=== PATIENT | female | born 1965 | race Caucasian/White ===

== ENCOUNTER 2021-11-18 17:01 | Emergency (ER) | payer BC ==
[~2021-11-18] VITALS: Ht 185.4 cm; Wt 119.0 kg
[2021-11-18 17:02] VITALS: BP 156/79
[2021-11-18] MEDS ORDERED: DONE10TA90 (17:19)
[2021-11-18] MEDS ORDERED: PREG75CA2 (17:19)
[2021-11-18] MEDS ORDERED: LOSA25TA13 (17:19)
[2021-11-18] MEDS ORDERED: DULO1CAP5 (17:19)
[2021-11-18] MEDS ORDERED: HYDR-4517 (17:19)
[2021-11-18] MEDS ORDERED: HYDR-3363 (17:19)
[2021-11-18] MEDS ORDERED: JANU50TA25 (17:19)
[2021-11-18] MEDS ORDERED: LEVO25TA5 (17:19)
[2021-11-18] MEDS ORDERED: DULO1CAP6 (17:19)
[2021-11-18] MEDS ORDERED: INSUH10VL (17:19)
[2021-11-18] MEDS ORDERED: FARX1TAB5 (17:19)
[2021-11-18] MEDS ORDERED: GLIM4TAB5 (17:19)
[2021-11-18] MEDS ORDERED: ATOR1TAB21 (17:19)
[2021-11-18] MEDS ORDERED: MELO15TA28 (17:19)
[2021-11-18] MEDS ORDERED: ATOG60TA (17:19)
[2021-11-18] MEDS ORDERED: GLIM2TAB29 (17:19)
[2021-11-18] MEDS ORDERED: BACITRACIN OINTMENT 30GM TUBE TOP ONE (22:05)
[2021-11-18] MEDS ORDERED: BOOSTRIX/ADACEL VACCINE (DIPHTH/PERTUSS/ACELL/TETANUS) 0.5ML SYR IM ONE (22:05)
[2021-11-18] MEDS ORDERED: BACTRIM 160MG/800MG DS TAB PO ONE (22:25)
[2021-11-18] MEDS ORDERED: BACT800T5 PO (22:30)
== END 2021-11-18 22:42 | disposition home or self-care (01) ==
LOC: M ED 17:01
DX: S91.121A Laceration with foreign body of right great toe without damage to nail, initial encounter (principal); W25.XXXA Contact with sharp glass, initial encounter; Y92.89 Other specified places as the place of occurrence of the external cause; L03.115 Cellulitis of right lower limb; I10 Essential (primary) hypertension; E11.9 Type 2 diabetes mellitus without complications; M79.7 Fibromyalgia; G90.50 Complex regional pain syndrome I, unspecified; E07.9 Disorder of thyroid, unspecified; R90.82 White matter disease, unspecified; Z88.5 Allergy status to narcotic agent; Z88.8 Allergy status to other drugs, medicaments and biological substances; Z91.012 Allergy to eggs; Z79.899 Other long term (current) drug therapy; Z79.84 Long term (current) use of oral hypoglycemic drugs; Z79.4 Long term (current) use of insulin; Z79.890 Hormone replacement therapy

== ENCOUNTER → 2021-12-03 | Outpatient (CLI) | payer BC ==
[~2021-12-03] MED LIST: ATOG60TA; ATOR1TAB21; BACT800T5 PO; DONE10TA90; DULO1CAP5; DULO1CAP6; FARX1TAB5; GLIM2TAB29; GLIM4TAB5; HYDR-3363; HYDR-4517; INSUH10VL; JANU50TA25; LEVO25TA5; LOSA25TA13; MELO15TA28; PREG75CA2
== END ==
LOC: M ADAMS 10:10
PROVIDERS: ATTEND Family Medicine
DX: M79.9 Soft tissue disorder, unspecified (principal)

== ENCOUNTER → 2022-01-21 | Outpatient (REF) | payer BC | LOC: M SFHCDERM 17:03 | PROVIDERS: ATTEND Nurse Practitioner Family | DX: L08.0 Pyoderma (principal) ==

== ENCOUNTER → 2022-02-02 | Outpatient (CLI) | payer BC ==
[2022-02-02 13:18] LABS: BASO # 0.1 10^3/uL (0.0-0.2); BASO % 0.6 % (0.0-1.0); EOS # 0.4 10^3/uL (0.0-0.5); EOS % 4.1 % (0.0-3.0); HEMATOCRIT 45.9 % (36.0-47.0); LYMPH # 4.2 10^3/uL (1.5-5.0); LYMPH % 48.4 % (24.0-44.0); MEAN CORPUSCULAR HEMOGLOBIN 28.6 pg (27.0-33.0); MEAN CORPUSCULAR HGB CONC 30.5 g/dl (32.0-36.5); MEAN CORPUSCULAR VOLUME 93.7 fl (80.0-96.0); MONO # 0.5 10^3/uL (0.0-0.8); MONO % 5.4 % (2.0-8.0); NEUTROPHILS # 3.6 10^3/uL (1.5-8.5); NEUTROPHILS % 41.3 % (36.0-66.0); PLATELET COUNT, AUTOMATED 236 10^3/uL (150-450); WHITE BLOOD COUNT 8.7 10^3/uL (4.0-10.0)
[2022-02-02 13:57] LABS: ALBUMIN 3.7 GM/DL (3.2-5.2); BILIRUBIN,DIRECT 0.1 MG/DL (0.0-0.2); BILIRUBIN,TOTAL 0.3 MG/DL (0.2-1.0)
== END ==
LOC: M ADAMS 09:26
PROVIDERS: ATTEND Podiatrist Foot & Ankle Surgery
DX: B35.1 Tinea unguium (principal)

== ENCOUNTER → 2022-02-02 | Outpatient (REF) | payer BC ==
[2022-02-02 14:05] LABS: ALBUMIN 3.5 GM/DL (3.2-5.2); ALT/SGPT 28 U/L (12-78); BILIRUBIN,TOTAL 0.3 MG/DL (0.2-1.0); BLOOD UREA NITROGEN 17 MG/DL (7-18); CARBON DIOXIDE LEVEL 25 MEQ/L (21-32); CHLORIDE LEVEL 105 MEQ/L (98-107); CHOLESTEROL LEVEL 142 MG/DL (<200); CREATININE FOR GFR 0.59 MG/DL (0.55-1.30); GLOMERULAR FILTRATION RATE > 60.0 (>51); GLUCOSE, FASTING 99 MG/DL (70-100); HDL CHOLESTEROL 52 MG/DL (>40); LDL CHOLESTEROL 72 MG/DL (<100); MAGNESIUM LEVEL 2.2 MG/DL (1.8-2.4); NON-HDL-C 90 MG/DL; POTASSIUM SERUM 3.8 MEQ/L (3.5-5.1); SODIUM LEVEL 137 MEQ/L (136-145); TOTAL PROTEIN 7.2 GM/DL (6.4-8.2); TRIGLYCERIDES LEVEL 88 MG/DL (<150)
[2022-02-02 16:02] LABS: HEMOGLOBIN A1c 6.7 %
== END ==
LOC: M SFHCADAM 09:18
PROVIDERS: ATTEND Family Medicine
DX: R25.2 Cramp and spasm (principal); E11.69 Type 2 diabetes mellitus with other specified complication

== ENCOUNTER → 2022-02-02 | Outpatient (CLI) | payer BC ==
[2022-02-02 14:03] LABS: THYROID STIMULATING HORMONE 3.92 uIU/ML (0.358-3.740)
[2022-02-02 14:37] LABS: TOTAL 25(OH) VITAMIN D 56.4 NG/ML (30.0-100.0)
== END ==
LOC: M ADAMS 09:29
PROVIDERS: ATTEND Psychiatry & Neurology Neurology
DX: R41.89 Other symptoms and signs involving cognitive functions and awareness (principal); E03.9 Hypothyroidism, unspecified

== ENCOUNTER → 2022-04-24 | Outpatient (REF) | payer BC | LOC: M SFHCADAM 16:05 | PROVIDERS: ATTEND Physician Assistant | DX: N30.01 Acute cystitis with hematuria (principal) ==

== ENCOUNTER → 2022-09-08 | Outpatient (CLI) | payer BC ==
[2022-09-08 13:21] LABS: BASO # 0.1 10^3/uL (0.0-0.2); BASO % 0.7 % (0.0-1.0); EOS # 0.3 10^3/uL (0.0-0.5); EOS % 2.6 % (0.0-3.0); HEMOGLOBIN 14.7 g/dl (12.0-15.5); LYMPH # 3.9 10^3/uL (1.5-5.0); LYMPH % 38.1 % (24.0-44.0); MEAN CORPUSCULAR HEMOGLOBIN 28.8 pg (27.0-33.0); MEAN CORPUSCULAR HGB CONC 31.3 g/dl (32.0-36.5); MEAN CORPUSCULAR VOLUME 92.2 fl (80.0-96.0); MONO # 0.6 10^3/uL (0.0-0.8); MONO % 5.5 % (2.0-8.0); NEUTROPHILS # 5.4 10^3/uL (1.5-8.5); NEUTROPHILS % 52.7 % (36.0-66.0); PLATELET COUNT, AUTOMATED 317 10^3/uL (150-450); WHITE BLOOD COUNT 10.2 10^3/uL (4.0-10.0)
[2022-09-08 13:36] LABS: APPEARANCE, URINE CLEAR (CLEAR); BACTERIA, URINE AUTO NEGATIVE (NEGATIVE); BILIRUBIN, URINE AUTO NEGATIVE (NEGATIVE); BLOOD, URINE BLOOD NEGATIVE (NEGATIVE); COLOR, URINE YELLOW (YELLOW); GLUCOSE, URINE (UA) AUTO 3+ mg/dL (NEGATIVE); KETONE, URINE AUTO TRACE mg/dL (NEGATIVE); LEUKOCYTE ESTERASE, URINE AUTO TRACE (NEGATIVE); NITRITE, URINE AUTO NEGATIVE (NEGATIVE); PROTEIN, URINE AUTO NEGATIVE (NEGATIVE); RBC, URINE AUTO 1 /HPF (0-3); SPECIFIC GRAVITY URINE AUTO 1.028 (1.002-1.035); SQUAMOUS EPITHELIAL CELL UR AU 1 /HPF (0-6); UROBILINOGEN, URINE AUTO 0.2 mg/dL (0.0-2.0); WBC, URINE AUTO 5 /HPF (0-3)
[2022-09-08 13:47] LABS: ALKALINE PHOSPHATASE 107 U/L (46-116); ALT/SGPT 34 U/L (7.0-40); AST/SGOT 18 U/L (<34); BILIRUBIN,TOTAL 0.5 MG/DL (0.3-1.2); BLOOD UREA NITROGEN 14 MG/DL (9-23); CALCIUM LEVEL 9.3 MG/DL (8.5-10.1); CARBON DIOXIDE LEVEL 28 MMOL/L (20-31); CHLORIDE LEVEL 103 MMOL/L (98-107); CHOLESTEROL LEVEL 169 MG/DL (<200); CHOLESTEROL RISK RATIO 3.22 (<5); CREATININE FOR GFR 0.59 MG/DL (0.55-1.30); GLOMERULAR FILTRATION RATE > 60.0 (>51); GLUCOSE, FASTING 176 MG/DL (60-100); HDL CHOLESTEROL 52.4 MG/DL (>40); LDL CHOLESTEROL 98.6 MG/DL (<100); NON-HDL-C 116.6 MG/DL; POTASSIUM SERUM 4.5 MMOL/L (3.5-5.1); SODIUM LEVEL 136 MMOL/L (136-145); TOTAL PROTEIN 7.5 G/DL (5.7-8.2); TRIGLYCERIDES LEVEL 90 MG/DL (<150)
[2022-09-08 13:49] LABS: FREE T4 0.96 NG/DL (0.89-1.76); THYROID PEROXIDASE ANTIBODY < 28.0 U/ML (<60.0); THYROID STIMULATING HORMONE 2.072 uIU/ML (0.55-4.78)
[2022-09-09 08:12] LABS: LDL DIRECT 101 mg/dL (0-99)
== END ==
LOC: M LABDRWAD 10:24
PROVIDERS: ATTEND Physician Assistant
DX: E11.65 Type 2 diabetes mellitus with hyperglycemia (principal); R79.89 Other specified abnormal findings of blood chemistry; Z79.4 Long term (current) use of insulin

== ENCOUNTER → 2022-10-06 | Outpatient (CLI) | payer BC | LOC: M ADAMS 11:50 | PROVIDERS: ATTEND Physician Assistant | DX: R07.81 Pleurodynia (principal) ==

== ENCOUNTER → 2022-10-07 | Outpatient (CLI) | payer BC | LOC: M WHC 13:12 | PROVIDERS: ATTEND Nurse Practitioner Family | DX: Z12.31 Encounter for screening mammogram for malignant neoplasm of breast (principal); Z53.8 Procedure and treatment not carried out for other reasons ==

== ENCOUNTER → 2022-10-07 | Outpatient (REF) | payer BC | LOC: M SFHCWAGY 17:59 | PROVIDERS: ATTEND Nurse Practitioner Family | DX: Z12.4 Encounter for screening for malignant neoplasm of cervix (principal) | CPT/HCPCS: 87624; G0123 ==

== ENCOUNTER → 2022-11-26 | Outpatient (CLI) | payer BC | LOC: M WHC 15:07 | PROVIDERS: ATTEND Nurse Practitioner Family | DX: Z12.31 Encounter for screening mammogram for malignant neoplasm of breast (principal) ==

== ENCOUNTER → 2022-12-28 | Outpatient (REF) | payer BC ==
[2022-12-28 16:58] LABS: BASO # 0.1 10^3/uL (0.0-0.2); BASO % 0.7 % (0.0-1.0); EOS # 0.3 10^3/uL (0.0-0.5); EOS % 3.5 % (0.0-3.0); HEMATOCRIT 47.2 % (36.0-47.0); HEMOGLOBIN 14.4 g/dl (12.0-15.5); LYMPH # 3.1 10^3/uL (1.5-5.0); LYMPH % 31.6 % (24.0-44.0); MEAN CORPUSCULAR HGB CONC 30.5 g/dl (32.0-36.5); MEAN CORPUSCULAR VOLUME 91.8 fl (80.0-96.0); MONO # 0.5 10^3/uL (0.0-0.8); MONO % 5.5 % (2.0-8.0); NEUTROPHILS # 5.7 10^3/uL (1.5-8.5); NEUTROPHILS % 58.3 % (36.0-66.0); PLATELET COUNT, AUTOMATED 342 10^3/uL (150-450); RED BLOOD COUNT 5.14 10^6/uL (4.00-5.40); WHITE BLOOD COUNT 9.8 10^3/uL (4.0-10.0)
[2022-12-28 17:12] LABS: ERYTHROCYTE SEDIMENTATION RATE 28 mm/hr (0-30)
[2022-12-28 18:25] LABS: RHEUMATOID FACTOR QUANT < 3.5 IU/ML (<14)
== END ==
LOC: M LABDRWAD 16:25
PROVIDERS: ATTEND Physician Assistant
DX: M25.551 Pain in right hip (principal); G56.03 Carpal tunnel syndrome, bilateral upper limbs; M65.341 Trigger finger, right ring finger

== ENCOUNTER → 2023-03-10 | Outpatient (CLI) | payer BC ==
[~2023-03-10] MED LIST changes: +ISOVUE-300 61% 100ML VIAL As Ordered ONE; +LIDOCAINE 1% MDV 20ML VIAL As Ordered ONE; -PREG75CA2; +PREG75CA3; +PROHANCE 279.3MG/ML 5ML VIAL As Ordered ONE
== END ==
LOC: M RAD 12:34
PROVIDERS: ATTEND Physician Assistant
DX: M16.12 Unilateral primary osteoarthritis, left hip (principal); M70.62 Trochanteric bursitis, left hip
CPT/HCPCS: 27093; 73723; 77002; A9576; Q9967

== ENCOUNTER → 2023-03-29 | Outpatient (CLI) | payer BC ==
[~2023-03-29] MED LIST changes: -ISOVUE-300 61% 100ML VIAL As Ordered ONE; -LIDOCAINE 1% MDV 20ML VIAL As Ordered ONE; -PROHANCE 279.3MG/ML 5ML VIAL As Ordered ONE
== END ==
LOC: M WHC 10:35
PROVIDERS: ATTEND Internal Medicine
DX: E07.89 Other specified disorders of thyroid (principal)

== ENCOUNTER → 2023-04-19 | Outpatient (CLI) | payer BC | LOC: M WUC 11:33 | PROVIDERS: ATTEND Physician Assistant Medical | DX: S22.42XA Multiple fractures of ribs, left side, initial encounter for closed fracture (principal); Y93.9 Activity, unspecified; Y92.9 Unspecified place or not applicable ==

== ENCOUNTER 2023-04-28 21:30 | Emergency (ER) | payer BC ==
[~2023-04-28] VITALS: Ht 185.4 cm; Wt 118.2 kg
[2023-04-28 21:31] VITALS: TEMP 98.4
[2023-04-29 01:07] VITALS: BP 133/59; O2SAT 100
== END 2023-04-29 01:21 | disposition home or self-care (01) ==
LOC: M ED 21:30
DX: S09.90XA Unspecified injury of head, initial encounter (principal); S43.402A Unspecified sprain of left shoulder joint, initial encounter; S63.92XA Sprain of unspecified part of left wrist and hand, initial encounter; S33.8XXA Sprain of other parts of lumbar spine and pelvis, initial encounter; W01.0XXA Fall on same level from slipping, tripping and stumbling without subsequent striking against object, initial encounter; Y92.009 Unspecified place in unspecified non-institutional (private) residence as the place of occurrence of the external cause; E11.9 Type 2 diabetes mellitus without complications; Z79.899 Other long term (current) drug therapy; Z88.6 Allergy status to analgesic agent; Z88.8 Allergy status to other drugs, medicaments and biological substances; Z88.5 Allergy status to narcotic agent; Z91.012 Allergy to eggs

== ENCOUNTER → 2023-07-16 | Outpatient (REF) | payer BC | LOC: M LABDRWAD 13:17 | PROVIDERS: ATTEND Physician Assistant | DX: E11.65 Type 2 diabetes mellitus with hyperglycemia (principal); Z79.4 Long term (current) use of insulin ==

== ENCOUNTER → 2023-09-08 | Outpatient (REF) | payer BC ==
[2023-09-08 17:51] LABS: APPEARANCE, URINE HAZY (CLEAR); BACTERIA, URINE AUTO NEGATIVE (NEGATIVE); BILIRUBIN, URINE AUTO NEGATIVE (NEGATIVE); BLOOD, URINE BLOOD NEGATIVE (NEGATIVE); COLOR, URINE YELLOW (YELLOW); GLUCOSE, URINE (UA) AUTO 3+ mg/dL (NEGATIVE); KETONE, URINE AUTO TRACE mg/dL (NEGATIVE); LEUKOCYTE ESTERASE, URINE AUTO TRACE (NEGATIVE); NITRITE, URINE AUTO NEGATIVE (NEGATIVE); PROTEIN, URINE AUTO NEGATIVE (NEGATIVE); RBC, URINE AUTO 1 /HPF (0-3); SPECIFIC GRAVITY URINE AUTO 1.037 (1.002-1.035); SQUAMOUS EPITHELIAL CELL UR AU 1 /HPF (0-6); UROBILINOGEN, URINE AUTO 0.2 mg/dL (0.0-2.0); WBC, URINE AUTO 2 /HPF (0-3)
== END ==
LOC: M SMT 17:00
PROVIDERS: ATTEND Specialist
DX: N39.46 Mixed incontinence (principal)

== ENCOUNTER → 2023-09-21 | Outpatient (REF) | payer BC | LOC: M SFHCDERM 17:00 | PROVIDERS: ATTEND Nurse Practitioner Family | DX: R21 Rash and other nonspecific skin eruption (principal) ==

== ENCOUNTER 2023-12-29 06:01 | Day surgery (SDC) | payer BC ==
[~2023-12-29] VITALS: Ht 185.4 cm; Wt 123.4 kg
[~2023-12-29 06:01] MED LIST changes: +ACETYL CARNITINE PO; +ALPH600C PO; +ASPI81TA26 PO; -ATOR1TAB21; +ATOR1TAB21 PO; +COQ150CH PO; +CVS1CAP2 PO; -DONE10TA90; +DONE10TA90 PO; -DULO1CAP6; +DULO1CAP6 PO; +EQL50TAB2 PO; -FARX1TAB5; +FARX1TAB5 PO; -GLIM4TAB5; +GLIM4TAB5 PO; -HYDR-4517; +HYDR-4517 PO; +JANU50TA22 PO; -LOSA25TA13; +LOSA25TA13 PO; -MELO15TA28; +MELO15TA28 PO; +MIRT1TAB15 PO; +OMEG10002 PO; +RA N1TAB PO; +RA T500C2 PO; +THERTAB52 PO; +TROS20TA3 PO; +VITA100093 PO; +[UNRECOGNIZED DRUG - CODE] PO
[2023-12-29] MEDS ORDERED: GLUCOSE 4 GM CHEW PO PRN (06:30)
[2023-12-29] MEDS ORDERED: GLUCAGON INJ 1MG VIAL SC PRN (06:30)
[2023-12-29] MEDS ORDERED: DEXTROSE 50% 50ML SYRINGE IV PRN (06:30)
[2023-12-29] MEDS: LR 1,000 ML IV SCH (07:07)
[2023-12-29] MEDS: INSULIN LISPRO (NovoLOG) PER UNIT SC PRN (07:07)
[2023-12-29] MEDS ORDERED: ONDANSETRON 4MG 2ML VIAL As Ordered ONE (07:25)
[2023-12-29] MEDS ORDERED: fentaNYL 100 MCG/2 ML INJECTION As Ordered ONE (07:25)
[2023-12-29] MEDS ORDERED: LIDOCAINE 2% 100MG/5ML SDV (FOR ANES.) As Ordered ONE (07:25)
[2023-12-29] MEDS ORDERED: dexmedeTOMIDine (4MCG/ML)200MCG/50ML BTL (PRECEDEX) As Ordered ONE (07:25)
[2023-12-29] MEDS ORDERED: KETOROLAC 60MG 2ML VIAL As Ordered ONE (07:25)
[2023-12-29] MEDS ORDERED: propofoL 200 MG/20 ML VIAL As Ordered ONE (07:25)
[2023-12-29] MEDS ORDERED: MIDAZOLAM INJ 2MG/2ML VIAL As Ordered ONE (07:26)
[2023-12-29] MEDS: ceFAZolin SOD 2 GM in IV 1 EA IV ONE (07:42)
[2023-12-29] MEDS: LIDOCAINE 1% SDV 30ML VIAL As Ordered ONE (07:43)
[2023-12-29] MEDS ORDERED: METOCLOPRAMIDE INJ 10MG/2ML VIAL As Ordered ONE (07:55)
[2023-12-29] MEDS ORDERED: ACETAMINOPHEN 1000MG 100ML IV BAG As Ordered ONE (07:55)
[2023-12-29 10:53] VITALS: BP 142/64; TEMP 97.1; O2SAT 96
== END 2023-12-29 10:57 | disposition home or self-care (01) ==
LOC: M SDC 06:01
PROVIDERS: ATTEND Podiatrist Foot & Ankle Surgery
DX: M89.8X7 Other specified disorders of bone, ankle and foot (principal); T84.213A Breakdown (mechanical) of internal fixation device of bones of foot and toes, initial encounter; T84.84XA Pain due to internal orthopedic prosthetic devices, implants and grafts, initial encounter; Y79.2 Prosthetic and other implants, materials and accessory orthopedic devices associated with adverse incidents; M20.42 Other hammer toe(s) (acquired), left foot; E10.40 Type 1 diabetes mellitus with diabetic neuropathy, unspecified; B35.1 Tinea unguium; M79.7 Fibromyalgia; Z79.4 Long term (current) use of insulin; Z79.899 Other long term (current) drug therapy; Z79.82 Long term (current) use of aspirin; Z79.84 Long term (current) use of oral hypoglycemic drugs; Z88.8 Allergy status to other drugs, medicaments and biological substances; Z88.5 Allergy status to narcotic agent

== ENCOUNTER 2024-01-14 16:07 | Emergency (ER) | payer BC ==
[~2024-01-14] VITALS: Ht 185.4 cm; Wt 122.7 kg
[2024-01-14 20:40] VITALS: BP 133/70; TEMP 98.2; O2SAT 97
== END 2024-01-14 20:42 | disposition home or self-care (01) ==
LOC: M ED 16:07
DX: T81.31XA Disruption of external operation (surgical) wound, not elsewhere classified, initial encounter (principal); E11.40 Type 2 diabetes mellitus with diabetic neuropathy, unspecified; S91.332A Puncture wound without foreign body, left foot, initial encounter; W45.0XXA Nail entering through skin, initial encounter; Y92.9 Unspecified place or not applicable; Y93.9 Activity, unspecified; Y99.9 Unspecified external cause status; Y82.9 Unspecified medical devices associated with adverse incidents

== ENCOUNTER 2024-01-21 15:11 | Inpatient (IN) | payer BC ==
[~2024-01-21] VITALS: Ht 185.4 cm; Wt 123.1 kg
[~2024-01-21 15:11] MED LIST changes: -AMOX875T2 PO; -CO Q10CA PO; -JANU50TA25 PO; -TROS60CA2 PO
[2024-01-21 16:33] LABS: BASO # 0.1 10^3/uL (0.0-0.2); BASO % 0.4 % (0.0-1.0); EOS # 0.1 10^3/uL (0.0-0.5); EOS % 0.6 % (0.0-3.0); HEMATOCRIT 43.1 % (36.0-47.0); HEMOGLOBIN 14.1 g/dl (12.0-15.5); LYMPH # 2.6 10^3/uL (1.5-5.0); LYMPH % 17.8 % (24.0-44.0); MEAN CORPUSCULAR HEMOGLOBIN 29.7 pg (27.0-33.0); MEAN CORPUSCULAR HGB CONC 32.7 g/dl (32.0-36.5); MEAN CORPUSCULAR VOLUME 90.7 fl (80.0-96.0); MONO # 1.1 10^3/uL (0.0-0.8); MONO % 7.6 % (2.0-8.0); NEUTROPHILS # 10.8 10^3/uL (1.5-8.5); NEUTROPHILS % 73.1 % (36.0-66.0); PLATELET COUNT, AUTOMATED 299 10^3/uL (150-450); RED BLOOD COUNT 4.75 10^6/uL (4.00-5.40); WHITE BLOOD COUNT 14.7 10^3/uL (4.0-10.0)
[2024-01-21 17:02] LABS: ERYTHROCYTE SEDIMENTATION RATE 68 mm/hr (0-30)
[2024-01-21] MEDS ORDERED: VANCOMYCIN HCL 2,000 MG in D5W 500 ML IV ONE (20:05)
[2024-01-21] MEDS: VANCOMYCIN HCL 1,000 MG, VIAL MATE ADAPTER 1 EACH in D5W 250 ML IV ONE ×2 (20:30→20:31)
[2024-01-21] MEDS: MORPHINE 4 MG/ML 1ML VIAL IV ONE (20:31)
[2024-01-21] MEDS ORDERED: GLUCAGON INJ 1MG VIAL SC PRN (22:50)
[2024-01-21] MEDS ORDERED: GLUCOSE 4 GM CHEW PO PRN (22:50)
[2024-01-21] MEDS ORDERED: DEXTROSE 50% 50ML SYRINGE IV PRN (22:50)
[2024-01-21] MEDS: PIPERACILLIN/TAZOBACTAM SOD 3.375 GM in D5W MINI-BAG PLUS 50 ML IV SCH (23:10)
[2024-01-21] MEDS: MORPHINE 4 MG/ML 1ML VIAL IV PRN (23:11)
[2024-01-21 23:26] LABS: BASO # 0.1 10^3/uL (0.0-0.2); BASO % 0.5 % (0.0-1.0); EOS # 0.1 10^3/uL (0.0-0.5); EOS % 1.1 % (0.0-3.0); HEMATOCRIT 40.3 % (36.0-47.0); LYMPH # 2.8 10^3/uL (1.5-5.0); LYMPH % 29.1 % (24.0-44.0); MEAN CORPUSCULAR HEMOGLOBIN 29.1 pg (27.0-33.0); MEAN CORPUSCULAR HGB CONC 32.3 g/dl (32.0-36.5); MEAN CORPUSCULAR VOLUME 90.4 fl (80.0-96.0); MONO # 0.7 10^3/uL (0.0-0.8); MONO % 7.6 % (2.0-8.0); NEUTROPHILS # 5.9 10^3/uL (1.5-8.5); NEUTROPHILS % 61.4 % (36.0-66.0); PLATELET COUNT, AUTOMATED 274 10^3/uL (150-450); RED BLOOD COUNT 4.46 10^6/uL (4.00-5.40); WHITE BLOOD COUNT 9.7 10^3/uL (4.0-10.0)
[2024-01-21] MEDS ORDERED: TROS60CA2 PO (23:37)
[2024-01-21] MEDS ORDERED: CO Q10CA PO (23:37)
[2024-01-21] MEDS ORDERED: JANU50TA25 PO (23:37)
[2024-01-21] MEDS ORDERED: HOME MED LIST COMPLETE! XX SCH (23:40)
[2024-01-21 23:44] LABS: ALBUMIN 3.5 G/DL (3.2-5.2); ALKALINE PHOSPHATASE 126 U/L (46-116); ALT/SGPT 28 U/L (7.0-40); AST/SGOT 13 U/L (<34); BILIRUBIN,TOTAL 0.6 MG/DL (0.3-1.2); BLOOD UREA NITROGEN 11 MG/DL (9-23); CALCIUM LEVEL 8.9 MG/DL (8.5-10.1); CARBON DIOXIDE LEVEL 28 MMOL/L (20-31); CHLORIDE LEVEL 100 MMOL/L (98-107); CREATININE FOR GFR 0.57 MG/DL (0.55-1.30); GLOMERULAR FILTRATION RATE > 60.0 (>51); GLUCOSE, FASTING 214 MG/DL (60-100); POTASSIUM SERUM 3.7 MMOL/L (3.5-5.1); SODIUM LEVEL 133 MMOL/L (136-145); TOTAL PROTEIN 7.4 G/DL (5.7-8.2)
[2024-01-22 01:00] VITALS: BP 139/63; TEMP 98.1; O2SAT 94
[2024-01-22 03:20] VITALS: BP 127/63; TEMP 97.9; O2SAT 94
[2024-01-22 05:42] LABS: HEMATOCRIT 38.9 % (36.0-47.0); HEMOGLOBIN 12.6 g/dl (12.0-15.5); MEAN CORPUSCULAR HEMOGLOBIN 29.8 pg (27.0-33.0); MEAN CORPUSCULAR HGB CONC 32.4 g/dl (32.0-36.5); PLATELET COUNT, AUTOMATED 269 10^3/uL (150-450); RED BLOOD COUNT 4.23 10^6/uL (4.00-5.40); WHITE BLOOD COUNT 7.3 10^3/uL (4.0-10.0)
[2024-01-22] MEDS: MIRTAZAPINE 15 MG TAB PO SCH (06:09)
[2024-01-22 06:12] LABS: BLOOD UREA NITROGEN 11 MG/DL (9-23); CALCIUM LEVEL 9.5 MG/DL (8.5-10.1); CARBON DIOXIDE LEVEL 30 MMOL/L (20-31); CHLORIDE LEVEL 104 MMOL/L (98-107); CREATININE FOR GFR 0.61 MG/DL (0.55-1.30); GLOMERULAR FILTRATION RATE > 60.0 (>51); GLUCOSE, FASTING 178 MG/DL (60-100); POTASSIUM SERUM 3.7 MMOL/L (3.5-5.1); SODIUM LEVEL 138 MMOL/L (136-145)
[2024-01-22] MEDS ORDERED: INSULIN LISPRO (NovoLOG) PER UNIT SC SCH ×2 (07:30→21:00)
[2024-01-22] MEDS: DULoxetine 30MG CAPSULE (CYMBALTA) PO SCH (08:14)
[2024-01-22] MEDS: LACTOBACILLUS ACIDOPHILUS CAP (BACID) PO SCH (08:14)
[2024-01-22] MEDS: VITAMIN D 1,000 INTERNATIONAL UNITS TABLET PO SCH (08:14)
[2024-01-22] MEDS: MULTIVITAMINS/MINERALS THERAP 1 TAB PO SCH (08:14)
[2024-01-22] MEDS: OMEGA-3 1000MG CAPSULE PO SCH (08:14)
[2024-01-22] MEDS: RIVAROXABAN 10MG TAB (XARELTO) PO SCH (08:14)
[2024-01-22] MEDS: DONEPEZIL 5 MG TAB PO SCH (08:15)
[2024-01-22] MEDS: ASPIRIN 81MG ENTERIC TABLET PO SCH (08:16)
[2024-01-22] MEDS: LOSARTAN 25 MG TAB PO SCH (08:16)
[2024-01-22] MEDS: KETOCONAZOLE 2% CREAM TOP SCH (09:00)
[2024-01-22] MEDS: MORPHINE 2 MG/ML 1ML VIAL IV PRN (11:17)
[2024-01-22 12:00] VITALS: BP 121/57; TEMP 97.9; O2SAT 94
[2024-01-22] MEDS: GABAPENTIN 100 MG CAP PO SCH (14:25)
[2024-01-22] MEDS: VANCOMYCIN HCL 1,000 MG, VIAL MATE ADAPTER 1 EACH in D5W 250 ML IV ONE ×2 (15:20→16:44)
[2024-01-22] MEDS: ALPRAZolam 0.5 MG TAB PO ONE (16:15)
[2024-01-22 20:00] VITALS: BP 126/66; TEMP 98.1; O2SAT 97
[2024-01-22] MEDS: ATORVASTATIN 20 MG TAB PO SCH (20:43)
[2024-01-22] MEDS ORDERED: TROSPIUM 60 MG PO SCH (21:00)
[2024-01-22] MEDS: UNRESOLVED PATIENT OWN MED ORDER XX SCH (23:29)
[2024-01-22] MEDS: VANCOMYCIN HCL 1,000 MG, VIAL MATE ADAPTER 1 EACH in D5W 250 ML IV SCH (23:46)
[2024-01-23 04:00] VITALS: BP 132/68; TEMP 97.5; O2SAT 95
[2024-01-23] MEDS: ALPRAZolam 0.25 MG TAB PO ONE (04:14)
[2024-01-23 06:10] LABS: BASO % 0.6 % (0.0-1.0); EOS # 0.3 10^3/uL (0.0-0.5); EOS % 4.9 % (0.0-3.0); HEMATOCRIT 38.7 % (36.0-47.0); LYMPH # 2.3 10^3/uL (1.5-5.0); LYMPH % 36.8 % (24.0-44.0); MEAN CORPUSCULAR HEMOGLOBIN 29.1 pg (27.0-33.0); MEAN CORPUSCULAR VOLUME 93.7 fl (80.0-96.0); MONO # 0.6 10^3/uL (0.0-0.8); MONO % 9.6 % (2.0-8.0); NEUTROPHILS % 47.8 % (36.0-66.0); PLATELET COUNT, AUTOMATED 259 10^3/uL (150-450); RED BLOOD COUNT 4.13 10^6/uL (4.00-5.40); WHITE BLOOD COUNT 6.3 10^3/uL (4.0-10.0)
[2024-01-23 06:33] LABS: BLOOD UREA NITROGEN 12 MG/DL (9-23); CARBON DIOXIDE LEVEL 26 MMOL/L (20-31); CHLORIDE LEVEL 106 MMOL/L (98-107); CREATININE FOR GFR 0.49 MG/DL (0.55-1.30); GLOMERULAR FILTRATION RATE > 60.0 (>51); GLUCOSE, FASTING 240 MG/DL (60-100); POTASSIUM SERUM 4.1 MMOL/L (3.5-5.1); SODIUM LEVEL 139 MMOL/L (136-145)
[2024-01-23 12:00] VITALS: BP 140/71; TEMP 97.3; O2SAT 96
[2024-01-23 19:40] VITALS: BP 141/70; TEMP 97.7; O2SAT 99
[2024-01-24 04:00] VITALS: BP 124/64; TEMP 97.5; O2SAT 98
[2024-01-24] MEDS: ALPRAZolam 0.5 MG TAB PO PRN (04:38)
[2024-01-24] MEDS: VANCOMYCIN HCL 1,000 MG, VIAL MATE ADAPTER 1 EACH in D5W 250 ML IV SCH (08:44)
[2024-01-24] MEDS: INSULIN LISPRO (NovoLOG) PER UNIT SC SCH (08:45)
[2024-01-24] MEDS ORDERED: KETOROLAC 60MG 2ML VIAL As Ordered ONE (11:11)
[2024-01-24] MEDS ORDERED: ONDANSETRON 4MG 2ML VIAL As Ordered ONE (11:11)
[2024-01-24] MEDS ORDERED: ACETAMINOPHEN 1000MG 100ML IV BAG As Ordered ONE (11:11)
[2024-01-24] MEDS ORDERED: propofoL 200 MG/20 ML VIAL As Ordered ONE (11:11)
[2024-01-24] MEDS ORDERED: LIDOCAINE 2% 100MG/5ML SDV (FOR ANES.) As Ordered ONE (11:11)
[2024-01-24] MEDS ORDERED: fentaNYL 100 MCG/2 ML INJECTION As Ordered ONE (11:12)
[2024-01-24] MEDS ORDERED: MIDAZOLAM INJ 2MG/2ML VIAL As Ordered ONE (11:12)
[2024-01-24] MEDS ORDERED: oxyCODONE 5MG TAB PO PRN (11:20)
[2024-01-24] MEDS ORDERED: ONDANSETRON 4MG 2ML VIAL IV PRN (11:20)
[2024-01-24] MEDS ORDERED: HYDROMORPHONE HCL 0.5 MG/ 0.5 ML SYRINGE IV PRN (11:20)
[2024-01-24] MEDS: LIDOCAINE 1% SDV 30ML VIAL As Ordered ONE (11:41)
[2024-01-24] MEDS: LR 1,000 ML IV SCH (11:55)
[2024-01-24] MEDS ORDERED: fentaNYL 100 MCG/2 ML INJECTION IV PRN (11:55)
[2024-01-24 20:18] VITALS: BP 130/59; TEMP 97.5; O2SAT 100
[2024-01-24] MEDS: UNRESOLVED PATIENT OWN MED ORDER XX SCH (21:00)
[2024-01-25 04:11] VITALS: BP 118/57; TEMP 97.5; O2SAT 100
[2024-01-25 07:53] LABS: BASO # 0.1 10^3/uL (0.0-0.2); BASO % 0.7 % (0.0-1.0); EOS # 0.1 10^3/uL (0.0-0.5); EOS % 1.2 % (0.0-3.0); HEMATOCRIT 37.5 % (36.0-47.0); HEMOGLOBIN 11.9 g/dl (12.0-15.5); LYMPH # 3.1 10^3/uL (1.5-5.0); LYMPH % 36.4 % (24.0-44.0); MEAN CORPUSCULAR HGB CONC 31.7 g/dl (32.0-36.5); MEAN CORPUSCULAR VOLUME 91.2 fl (80.0-96.0); MONO # 0.5 10^3/uL (0.0-0.8); MONO % 6.2 % (2.0-8.0); NEUTROPHILS # 4.7 10^3/uL (1.5-8.5); NEUTROPHILS % 55.1 % (36.0-66.0); PLATELET COUNT, AUTOMATED 291 10^3/uL (150-450); RED BLOOD COUNT 4.11 10^6/uL (4.00-5.40); WHITE BLOOD COUNT 8.5 10^3/uL (4.0-10.0)
[2024-01-25 08:21] LABS: BLOOD UREA NITROGEN 13 MG/DL (9-23); CALCIUM LEVEL 9.1 MG/DL (8.5-10.1); CARBON DIOXIDE LEVEL 30 MMOL/L (20-31); CHLORIDE LEVEL 106 MMOL/L (98-107); CREATININE FOR GFR 0.53 MG/DL (0.55-1.30); GLOMERULAR FILTRATION RATE > 60.0 (>51); GLUCOSE, FASTING 244 MG/DL (60-100); SODIUM LEVEL 141 MMOL/L (136-145)
[2024-01-25 08:34] VITALS: BP 131/66
[2024-01-25 12:00] VITALS: BP 116/54; TEMP 97.2; O2SAT 96
[2024-01-25] MEDS ORDERED: CVS1CAP2 PO (12:30)
[2024-01-25] MEDS ORDERED: AMOX875T2 PO (12:30)
[2024-01-25] MEDS: AUGMENTIN 875 MG TAB PO SCH (13:20)
== END 2024-01-25 17:48 | disposition home or self-care (01) | DRG 344 ==
LOC: M ED 15:11 → M ED INP 22:29 → M MSPAV 01-22 00:53
PROVIDERS: ADMIT Student in an Organized Health Care Education/Training Program; ATTEND Internal Medicine
PROC: 0H9NXZZ Drainage of Left Foot Skin, External Approach (ICD-10-PCS; principal; 2024-01-24 11:00)
DX: E11.69 Type 2 diabetes mellitus with other specified complication (principal); T81.31XA Disruption of external operation (surgical) wound, not elsewhere classified, initial encounter; E11.621 Type 2 diabetes mellitus with foot ulcer; M86.172 Other acute osteomyelitis, left ankle and foot; E11.42 Type 2 diabetes mellitus with diabetic polyneuropathy; L03.116 Cellulitis of left lower limb; R90.82 White matter disease, unspecified; M79.7 Fibromyalgia; E56.9 Vitamin deficiency, unspecified; E03.9 Hypothyroidism, unspecified; G43.909 Migraine, unspecified, not intractable, without status migrainosus; E78.5 Hyperlipidemia, unspecified; G89.29 Other chronic pain; I10 Essential (primary) hypertension; E55.9 Vitamin D deficiency, unspecified; E66.9 Obesity, unspecified; Y83.8 Other surgical procedures as the cause of abnormal reaction of the patient, or of later complication, without mention of misadventure at the time of the procedure; L97.529 Non-pressure chronic ulcer of other part of left foot with unspecified severity; Z79.82 Long term (current) use of aspirin; Z79.1 Long term (current) use of non-steroidal anti-inflammatories (NSAID); Z79.4 Long term (current) use of insulin; Z79.899 Other long term (current) drug therapy; Z88.5 Allergy status to narcotic agent; Z88.8 Allergy status to other drugs, medicaments and biological substances; Z91.012 Allergy to eggs; Z68.35 Body mass index [BMI] 35.0-35.9, adult

== ENCOUNTER → 2024-01-21 | Outpatient (REF) | payer BC ==
[~2024-01-21] MED LIST changes: +AMOX875T2 PO; +CO Q10CA PO; +JANU50TA25 PO; +TROS60CA2 PO
== END ==
LOC: M LAB REF 16:32
PROVIDERS: ATTEND Podiatrist Foot & Ankle Surgery
DX: L03.116 Cellulitis of left lower limb (principal)

== ENCOUNTER 2024-02-09 11:23 | Inpatient (IN) | payer BC ==
[~2024-02-09] VITALS: Ht 185.4 cm; Wt 122.4 kg
[~2024-02-09 11:23] MED LIST changes: +AMOX875T2 PO; +CO Q10CA PO; -INSUH10VL; +INSUH10VL SQ; +JANU50TA25 PO; +TROS60CA2 PO
[2024-02-09] MEDS ORDERED: HYDR-3713 PO (11:52)
[2024-02-09] MEDS ORDERED: SEMA14TA2 PO (11:52)
[2024-02-09] MEDS ORDERED: PREG75CA3 PO (11:52)
[2024-02-09] MEDS ORDERED: BACTDSTA PO (11:52)
[2024-02-09 12:51] LABS: BASO # 0.1 10^3/uL (0.0-0.2); BASO % 0.6 % (0.0-1.0); EOS # 0.2 10^3/uL (0.0-0.5); EOS % 2.8 % (0.0-3.0); HEMATOCRIT 44.2 % (36.0-47.0); HEMOGLOBIN 13.9 g/dl (12.0-15.5); LYMPH # 2.8 10^3/uL (1.5-5.0); MEAN CORPUSCULAR HEMOGLOBIN 28.5 pg (27.0-33.0); MEAN CORPUSCULAR HGB CONC 31.4 g/dl (32.0-36.5); MEAN CORPUSCULAR VOLUME 90.6 fl (80.0-96.0); MONO # 0.5 10^3/uL (0.0-0.8); MONO % 6.3 % (2.0-8.0); NEUTROPHILS # 4.5 10^3/uL (1.5-8.5); NEUTROPHILS % 55.9 % (36.0-66.0); PLATELET COUNT, AUTOMATED 392 10^3/uL (150-450); RED BLOOD COUNT 4.88 10^6/uL (4.00-5.40); WHITE BLOOD COUNT 8.1 10^3/uL (4.0-10.0)
[2024-02-09 13:01] LABS: ERYTHROCYTE SEDIMENTATION RATE 72 mm/hr (0-30)
[2024-02-09 13:02] LABS: INR 0.99; PARTIAL THROMBOPLASTIN TIME 26.6 SECONDS (24.8-34.2); PROTHROMBIN TIME 12.8 SECONDS (12.5-14.5)
[2024-02-09 13:12] LABS: BLOOD UREA NITROGEN 11 MG/DL (9-23); CALCIUM LEVEL 9.6 MG/DL (8.5-10.1); CARBON DIOXIDE LEVEL 27 MMOL/L (20-31); CHLORIDE LEVEL 107 MMOL/L (98-107); GLOMERULAR FILTRATION RATE > 60.0 (>51); GLUCOSE, FASTING 284 MG/DL (60-100); POTASSIUM SERUM 4.5 MMOL/L (3.5-5.1); SODIUM LEVEL 140 MMOL/L (136-145)
[2024-02-09] MEDS ORDERED: VANCOMYCIN HCL 2,000 MG in IV FLUID PLACE HOLDER 1 EA IV ONE (15:15)
[2024-02-09] MEDS: PIPERACILLIN/TAZOBACTAM SOD 3.375 GM in D5W MINI-BAG PLUS 50 ML IV ONE (15:41)
[2024-02-09] MEDS: NS 1,000 ML IV ONE (15:41)
[2024-02-09] MEDS: fentaNYL 100 MCG/2 ML INJECTION IV ONE (15:43)
[2024-02-09] MEDS: VANCOMYCIN 2,000 MG/400 ML IV BAG *LOAD IV ONE (19:38)
[2024-02-09] MEDS ORDERED: CVS1CAP2 PO (20:19)
[2024-02-09] MEDS ORDERED: HOME MED LIST COMPLETE! XX SCH (20:30)
[2024-02-09] MEDS ORDERED: MOM 30ML SUSPENSION UDC PO PRN (21:45)
[2024-02-09] MEDS ORDERED: FLUID PLACE HOLDER IV SCH (21:45)
[2024-02-09] MEDS ORDERED: MAALOX 30 ML SUSP *UDC PO PRN (21:45)
[2024-02-09] MEDS ORDERED: VANCOMYCIN HCL IV SCH (21:45)
[2024-02-09] MEDS ORDERED: GLUCOSE 4 GM CHEW PO PRN (22:05)
[2024-02-09] MEDS ORDERED: DEXTROSE 50% 50ML SYRINGE IV PRN (22:05)
[2024-02-09] MEDS ORDERED: GLUCAGON INJ 1MG VIAL SC PRN (22:05)
[2024-02-09] MEDS: PIPERACILLIN/TAZOBACTAM SOD 4.5 GM in D5W MINI-BAG PLUS 50 ML IV SCH (22:17)
[2024-02-09] MEDS: INSULIN LISPRO (NovoLOG) PER UNIT SC SCH (22:40)
[2024-02-09] MEDS: ASPIRIN 81MG ENTERIC TABLET PO SCH (22:43)
[2024-02-09] MEDS: MIRTAZAPINE 15 MG TAB PO SCH (22:43)
[2024-02-09] MEDS: ATORVASTATIN 20 MG TAB PO SCH (22:43)
[2024-02-09] MEDS: NORCO, ANEXSIA 5/325MG TABLET (HYDROcodone/ACETAMINOPHEN) PO PRN (23:12)
[2024-02-09] MEDS: MELOXICAM (MOBIC) 7.5 MG TAB PO SCH (23:12)
[2024-02-09] MEDS: LR 1,000 ML IV SCH (23:47)
[2024-02-10] VITALS (7 sets, daily range): BP systolic 110–149; BP diastolic 57–69; TEMP 97.1–98; O2SAT 94–96
[2024-02-10] MEDS: VANCOMYCIN IV SCH (05:39)
[2024-02-10 06:04] LABS: HEMATOCRIT 36.8 % (36.0-47.0); MEAN CORPUSCULAR HEMOGLOBIN 29.4 pg (27.0-33.0); MEAN CORPUSCULAR HGB CONC 31.5 g/dl (32.0-36.5); MEAN CORPUSCULAR VOLUME 93.4 fl (80.0-96.0); PLATELET COUNT, AUTOMATED 330 10^3/uL (150-450); RED BLOOD COUNT 3.94 10^6/uL (4.00-5.40); WHITE BLOOD COUNT 7.7 10^3/uL (4.0-10.0)
[2024-02-10 06:05] LABS: HEMOGLOBIN 11.6 g/dl (12.0-15.5)
[2024-02-10 06:11] LABS: ERYTHROCYTE SEDIMENTATION RATE 24 mm/hr (0-30)
[2024-02-10 06:21] LABS: ALBUMIN 2.8 G/DL (3.2-5.2); ALKALINE PHOSPHATASE 136 U/L (46-116); ALT/SGPT 28 U/L (7.0-40); AST/SGOT 12 U/L (<34); BILIRUBIN,TOTAL 0.3 MG/DL (0.3-1.2); BLOOD UREA NITROGEN 10 MG/DL (9-23); CALCIUM LEVEL 8.4 MG/DL (8.5-10.1); CARBON DIOXIDE LEVEL 26 MMOL/L (20-31); CHLORIDE LEVEL 110 MMOL/L (98-107); CREATININE FOR GFR 0.52 MG/DL (0.55-1.30); GLOMERULAR FILTRATION RATE > 60.0 (>51); GLUCOSE, FASTING 228 MG/DL (60-100); MAGNESIUM LEVEL 1.9 MG/DL (1.8-2.4); SODIUM LEVEL 140 MMOL/L (136-145); TOTAL PROTEIN 5.9 G/DL (5.7-8.2)
[2024-02-10] MEDS: INSULIN LISPRO (NovoLOG) PER UNIT SC SCH (07:30)
[2024-02-10] MEDS: LACTOBACILLUS ACIDOPHILUS CAP (BACID) PO SCH (07:33)
[2024-02-10] MEDS: DOCUSATE SODIUM 100MG CAPSULE PO SCH (08:51)
[2024-02-10] MEDS: DULoxetine 30MG CAPSULE (CYMBALTA) PO SCH (08:51)
[2024-02-10] MEDS: DONEPEZIL 5 MG TAB PO SCH (08:51)
[2024-02-10] MEDS: OMEGA-3 1000MG CAPSULE PO SCH (08:52)
[2024-02-10] MEDS: PREGABALIN 75 MG CAP(LYRICA) PO SCH (08:52)
[2024-02-10] MEDS: VITAMIN D 1,000 INTERNATIONAL UNITS TABLET PO SCH (08:52)
[2024-02-10] MEDS: LOSARTAN 25 MG TAB PO SCH (09:00)
[2024-02-10] MEDS: LIDOCAINE 1% MDV 20ML VIAL As Ordered ONE (12:16)
[2024-02-10] MEDS ORDERED: propofoL 200 MG/20 ML VIAL As Ordered ONE (12:25)
[2024-02-10] MEDS ORDERED: fentaNYL 100 MCG/2 ML INJECTION As Ordered ONE (12:25)
[2024-02-10] MEDS ORDERED: LIDOCAINE 2% 100MG/5ML SDV (FOR ANES.) As Ordered ONE (12:25)
[2024-02-10] MEDS ORDERED: MIDAZOLAM INJ 2MG/2ML VIAL As Ordered ONE (12:25)
[2024-02-10] MEDS ORDERED: ACETAMINOPHEN 1000MG 100ML IV BAG As Ordered ONE (12:28)
[2024-02-10] MEDS: VANCOMYCIN 1000MG/20ML VIAL As Ordered ONE (12:35)
[2024-02-10] MEDS ORDERED: fentaNYL 100 MCG/2 ML INJECTION IV PRN (12:55)
[2024-02-10] MEDS ORDERED: HYDROMORPHONE HCL 0.5 MG/ 0.5 ML SYRINGE IV PRN (12:55)
[2024-02-10] MEDS ORDERED: ONDANSETRON 4MG 2ML VIAL IV PRN (12:55)
[2024-02-10] MEDS: MAGNESIUM OXIDE 400MG TAB (MAG-OX) PO SCH (16:21)
[2024-02-10] MEDS: MORPHINE 2 MG/ML 1ML VIAL IV PRN (19:28)
[2024-02-10] MEDS ORDERED: TROSPIUM 60 MG PO SCH (21:00)
[2024-02-10] MEDS: NORCO, ANEXSIA 5/325MG TABLET (HYDROcodone/ACETAMINOPHEN) PO PRN (23:41)
[2024-02-11] VITALS: BP 114/57; TEMP 98.3; O2SAT 96
[2024-02-11] MEDS ORDERED: NALOXONE INJ 0.4MG/1ML VIAL IV PRN (01:30)
[2024-02-11] MEDS: METHOCARBAMOL 1,000 MG/10 ML VIAL IV ONE (01:57)
[2024-02-11] MEDS: HYDROmorphone HCL 2MG/ML 1ML VIAL IV PRN (02:12)
[2024-02-11 04:00] VITALS: BP 116/58; TEMP 98.3; O2SAT 98
[2024-02-11 08:00] VITALS: BP 122/60; TEMP 97.2; O2SAT 97
[2024-02-11] MEDS: HYDROMORPHONE HCL 0.5 MG/ 0.5 ML SYRINGE IV PRN (10:08)
[2024-02-11] MEDS: UNRESOLVED PATIENT OWN MED ORDER XX SCH (10:16)
[2024-02-11 12:00] VITALS: BP 116/56; TEMP 97.7; O2SAT 98
[2024-02-11 16:00] VITALS: BP 116/56; TEMP 98.1; O2SAT 98
[2024-02-11 20:00] VITALS: BP 130/58; TEMP 97.8; O2SAT 97
[2024-02-12 04:00] VITALS: BP 140/66; TEMP 98; O2SAT 98
[2024-02-12 11:35] VITALS: BP 130/66; TEMP 97.7; O2SAT 94
[2024-02-12] MEDS: methocarbamoL 500 MG TAB PO PRN (16:02)
[2024-02-12 19:37] VITALS: BP 126/63; TEMP 98.2; O2SAT 96
[2024-02-13 04:00] VITALS: BP 127/64; TEMP 97.9; O2SAT 98
[2024-02-13 04:33] LABS: BASO % 0.4 % (0.0-1.0); EOS # 0.3 10^3/uL (0.0-0.5); EOS % 3.9 % (0.0-3.0); HEMATOCRIT 36.4 % (36.0-47.0); HEMOGLOBIN 11.5 g/dl (12.0-15.5); LYMPH # 2.4 10^3/uL (1.5-5.0); LYMPH % 32.1 % (24.0-44.0); MEAN CORPUSCULAR HEMOGLOBIN 29.2 pg (27.0-33.0); MEAN CORPUSCULAR HGB CONC 31.6 g/dl (32.0-36.5); MEAN CORPUSCULAR VOLUME 92.4 fl (80.0-96.0); MONO # 0.5 10^3/uL (0.0-0.8); MONO % 6.9 % (2.0-8.0); NEUTROPHILS # 4.1 10^3/uL (1.5-8.5); NEUTROPHILS % 56.3 % (36.0-66.0); PLATELET COUNT, AUTOMATED 291 10^3/uL (150-450); RED BLOOD COUNT 3.94 10^6/uL (4.00-5.40); WHITE BLOOD COUNT 7.4 10^3/uL (4.0-10.0)
[2024-02-13 04:57] LABS: BLOOD UREA NITROGEN 13 MG/DL (9-23); CALCIUM LEVEL 8.7 MG/DL (8.5-10.1); CARBON DIOXIDE LEVEL 31 MMOL/L (20-31); CHLORIDE LEVEL 105 MMOL/L (98-107); CREATININE FOR GFR 0.56 MG/DL (0.55-1.30); GLOMERULAR FILTRATION RATE > 60.0 (>51); GLUCOSE, FASTING 196 MG/DL (60-100); SODIUM LEVEL 139 MMOL/L (136-145)
[2024-02-13 12:00] VITALS: BP 150/65; TEMP 98.2; O2SAT 93
[2024-02-13 20:19] VITALS: BP 141/68; TEMP 98.1; O2SAT 96
[2024-02-14 04:58] VITALS: BP 142/67; TEMP 97.2; O2SAT 91
[2024-02-14 06:20] LABS: BASO # 0.1 10^3/uL (0.0-0.2); BASO % 0.7 % (0.0-1.0); EOS # 0.3 10^3/uL (0.0-0.5); EOS % 4.1 % (0.0-3.0); HEMATOCRIT 39.4 % (36.0-47.0); HEMOGLOBIN 12.5 g/dl (12.0-15.5); LYMPH # 2.7 10^3/uL (1.5-5.0); LYMPH % 35.9 % (24.0-44.0); MEAN CORPUSCULAR HEMOGLOBIN 28.7 pg (27.0-33.0); MEAN CORPUSCULAR HGB CONC 31.7 g/dl (32.0-36.5); MEAN CORPUSCULAR VOLUME 90.4 fl (80.0-96.0); MONO # 0.5 10^3/uL (0.0-0.8); MONO % 7.1 % (2.0-8.0); NEUTROPHILS # 3.9 10^3/uL (1.5-8.5); NEUTROPHILS % 51.9 % (36.0-66.0); PLATELET COUNT, AUTOMATED 334 10^3/uL (150-450); RED BLOOD COUNT 4.36 10^6/uL (4.00-5.40); WHITE BLOOD COUNT 7.5 10^3/uL (4.0-10.0)
[2024-02-14 06:49] LABS: BLOOD UREA NITROGEN 12 MG/DL (9-23); CALCIUM LEVEL 8.9 MG/DL (8.5-10.1); CARBON DIOXIDE LEVEL 31 MMOL/L (20-31); CHLORIDE LEVEL 104 MMOL/L (98-107); CREATININE FOR GFR 0.52 MG/DL (0.55-1.30); GLOMERULAR FILTRATION RATE > 60.0 (>51); GLUCOSE, FASTING 143 MG/DL (60-100); POTASSIUM SERUM 4.2 MMOL/L (3.5-5.1); SODIUM LEVEL 139 MMOL/L (136-145)
[2024-02-14 11:11] LABS: HEMOGLOBIN A1c 7.9 % (4.0-6.0)
[2024-02-14 12:00] VITALS: BP 142/68; TEMP 98.2; O2SAT 94
[2024-02-14 20:38] VITALS: BP 140/66; TEMP 97.2; O2SAT 95
[2024-02-15 04:00] VITALS: BP 141/68; TEMP 98.1; O2SAT 95
[2024-02-15 06:26] LABS: BASO % 0.4 % (0.0-1.0); EOS # 0.3 10^3/uL (0.0-0.5); EOS % 4.5 % (0.0-3.0); HEMOGLOBIN 12.1 g/dl (12.0-15.5); LYMPH # 2.3 10^3/uL (1.5-5.0); LYMPH % 30.1 % (24.0-44.0); MEAN CORPUSCULAR HEMOGLOBIN 28.9 pg (27.0-33.0); MEAN CORPUSCULAR HGB CONC 31.8 g/dl (32.0-36.5); MEAN CORPUSCULAR VOLUME 90.9 fl (80.0-96.0); MONO # 0.5 10^3/uL (0.0-0.8); MONO % 6.1 % (2.0-8.0); NEUTROPHILS # 4.4 10^3/uL (1.5-8.5); NEUTROPHILS % 58.5 % (36.0-66.0); PLATELET COUNT, AUTOMATED 327 10^3/uL (150-450); RED BLOOD COUNT 4.18 10^6/uL (4.00-5.40); WHITE BLOOD COUNT 7.5 10^3/uL (4.0-10.0)
[2024-02-15 06:52] LABS: BLOOD UREA NITROGEN 12 MG/DL (9-23); CALCIUM LEVEL 8.9 MG/DL (8.5-10.1); CARBON DIOXIDE LEVEL 29 MMOL/L (20-31); CHLORIDE LEVEL 105 MMOL/L (98-107); CREATININE FOR GFR 0.51 MG/DL (0.55-1.30); GLOMERULAR FILTRATION RATE > 60.0 (>51); GLUCOSE, FASTING 148 MG/DL (60-100); SODIUM LEVEL 139 MMOL/L (136-145)
[2024-02-15] MEDS: ACETAMINOPHEN TAB 650MG DOSE (2X325MG) PO PRN (10:46)
[2024-02-15 12:00] VITALS: BP 119/65; TEMP 97.2; O2SAT 97
[2024-02-15 20:00] VITALS: BP 143/65; TEMP 97.3
[2024-02-16 04:00] VITALS: BP 145/65; TEMP 97.9; O2SAT 96
[2024-02-16 06:58] LABS: BASO % 0.7 % (0.0-1.0); EOS # 0.4 10^3/uL (0.0-0.5); EOS % 6.1 % (0.0-3.0); HEMATOCRIT 40.6 % (36.0-47.0); HEMOGLOBIN 12.7 g/dl (12.0-15.5); LYMPH # 2.3 10^3/uL (1.5-5.0); LYMPH % 38.5 % (24.0-44.0); MEAN CORPUSCULAR HEMOGLOBIN 28.3 pg (27.0-33.0); MEAN CORPUSCULAR HGB CONC 31.3 g/dl (32.0-36.5); MEAN CORPUSCULAR VOLUME 90.6 fl (80.0-96.0); MONO # 0.5 10^3/uL (0.0-0.8); MONO % 8.1 % (2.0-8.0); NEUTROPHILS # 2.8 10^3/uL (1.5-8.5); NEUTROPHILS % 46.1 % (36.0-66.0); PLATELET COUNT, AUTOMATED 304 10^3/uL (150-450); RED BLOOD COUNT 4.48 10^6/uL (4.00-5.40); WHITE BLOOD COUNT 6.1 10^3/uL (4.0-10.0)
[2024-02-16 07:30] LABS: BLOOD UREA NITROGEN 9 MG/DL (9-23); CALCIUM LEVEL 8.9 MG/DL (8.5-10.1); CARBON DIOXIDE LEVEL 29 MMOL/L (20-31); CHLORIDE LEVEL 107 MMOL/L (98-107); CREATININE FOR GFR 0.55 MG/DL (0.55-1.30); GLOMERULAR FILTRATION RATE > 60.0 (>51); GLUCOSE, FASTING 126 MG/DL (60-100); POTASSIUM SERUM 3.9 MMOL/L (3.5-5.1); SODIUM LEVEL 138 MMOL/L (136-145)
[2024-02-16 12:00] VITALS: BP 126/63; TEMP 97.6; O2SAT 96
[2024-02-16 20:20] VITALS: BP 145/61; TEMP 97; O2SAT 94
[2024-02-17 04:09] VITALS: BP 146/70; TEMP 97.9; O2SAT 94
[2024-02-17 06:17] LABS: BASO % 0.6 % (0.0-1.0); EOS # 0.4 10^3/uL (0.0-0.5); EOS % 5.9 % (0.0-3.0); HEMOGLOBIN 12.5 g/dl (12.0-15.5); LYMPH # 2.7 10^3/uL (1.5-5.0); LYMPH % 41.1 % (24.0-44.0); MEAN CORPUSCULAR HEMOGLOBIN 29.1 pg (27.0-33.0); MEAN CORPUSCULAR HGB CONC 31.3 g/dl (32.0-36.5); MONO # 0.5 10^3/uL (0.0-0.8); MONO % 7.6 % (2.0-8.0); NEUTROPHILS # 2.9 10^3/uL (1.5-8.5); NEUTROPHILS % 44.3 % (36.0-66.0); PLATELET COUNT, AUTOMATED 290 10^3/uL (150-450); WHITE BLOOD COUNT 6.6 10^3/uL (4.0-10.0)
[2024-02-17 06:44] LABS: BLOOD UREA NITROGEN 12 MG/DL (9-23); CARBON DIOXIDE LEVEL 27 MMOL/L (20-31); CHLORIDE LEVEL 106 MMOL/L (98-107); CREATININE FOR GFR 0.54 MG/DL (0.55-1.30); GLOMERULAR FILTRATION RATE > 60.0 (>51); GLUCOSE, FASTING 127 MG/DL (60-100); POTASSIUM SERUM 3.8 MMOL/L (3.5-5.1); SODIUM LEVEL 139 MMOL/L (136-145)
[2024-02-17 08:30] VITALS: BP 146/69
[2024-02-17] MEDS ORDERED: CEFD300CAP PO (10:23)
[2024-02-17] MEDS ORDERED: DOXY100C3 PO (10:23)
[2024-02-17 11:32] VITALS: BP 106/55; TEMP 97.9; O2SAT 97
[2024-02-17] MEDS: CEFDINIR 300 MG CAP (OMNICEF) PO SCH (13:48)
[2024-02-17] MEDS: DOXYCYCLINE HYCLATE 100MG TABLET PO SCH (13:48)
== END 2024-02-17 16:35 | disposition home or self-care (01) | DRG 344 ==
LOC: M ED 11:23 → M ED INP 21:44 → M MS4PR 02-10 15:10 → M MS5PR 02-12 11:35
PROVIDERS: ADMIT Internal Medicine; ATTEND Internal Medicine
PROC: 0QBP0ZX Excision of Left Metatarsal, Open Approach, Diagnostic (ICD-10-PCS; principal; 2024-02-10 13:00)
PROC: 3E0V329 Introduction of Other Anti-infective into Bones, Percutaneous Approach (ICD-10-PCS; 2024-02-10 13:00)
DX: E11.69 Type 2 diabetes mellitus with other specified complication (principal); E11.42 Type 2 diabetes mellitus with diabetic polyneuropathy; M86.172 Other acute osteomyelitis, left ankle and foot; M79.7 Fibromyalgia; E03.9 Hypothyroidism, unspecified; G43.909 Migraine, unspecified, not intractable, without status migrainosus; L02.612 Cutaneous abscess of left foot; G89.29 Other chronic pain; M45.9 Ankylosing spondylitis of unspecified sites in spine; Z79.82 Long term (current) use of aspirin; Z79.4 Long term (current) use of insulin; Z79.899 Other long term (current) drug therapy; Z88.5 Allergy status to narcotic agent; Z88.8 Allergy status to other drugs, medicaments and biological substances; Z91.012 Allergy to eggs

== ENCOUNTER → 2024-06-23 | Outpatient (REF) | payer BC ==
[~2024-06-23] MED LIST changes: +BACTDSTA PO; +CEFD300CAP PO; +DOXY100C3 PO; +HYDR-3713 PO; +PREG75CA3 PO; +SEMA14TA2 PO
[2024-06-23 14:27] LABS: BASO # 0.1 10^3/uL (0.0-0.2); BASO % 0.7 % (0.0-1.0); EOS # 0.2 10^3/uL (0.0-0.5); EOS % 2.7 % (0.0-3.0); HEMOGLOBIN 14.2 g/dl (12.0-15.5); LYMPH # 4.2 10^3/uL (1.5-5.0); LYMPH % 51.1 % (24.0-44.0); MEAN CORPUSCULAR HEMOGLOBIN 29.2 pg (27.0-33.0); MEAN CORPUSCULAR HGB CONC 31.6 g/dl (32.0-36.5); MEAN CORPUSCULAR VOLUME 92.4 fl (80.0-96.0); MONO # 0.5 10^3/uL (0.0-0.8); MONO % 5.9 % (2.0-8.0); NEUTROPHILS # 3.2 10^3/uL (1.5-8.5); NEUTROPHILS % 39.4 % (36.0-66.0); PLATELET COUNT, AUTOMATED 309 10^3/uL (150-450); RED BLOOD COUNT 4.87 10^6/uL (4.00-5.40); WHITE BLOOD COUNT 8.2 10^3/uL (4.0-10.0)
== END ==
LOC: M LABDRWAD 13:04
PROVIDERS: ATTEND Physician Assistant
DX: E11.65 Type 2 diabetes mellitus with hyperglycemia (principal); Z79.4 Long term (current) use of insulin

== ENCOUNTER → 2024-08-30 | Outpatient (CLI) | payer BC | LOC: M WUC 13:10 | PROVIDERS: ATTEND Internal Medicine | DX: J00 Acute nasopharyngitis [common cold] (principal) ==

== ENCOUNTER 2024-12-01 00:26 | Emergency (ER) | payer BC ==
[~2024-12-01] VITALS: Ht 185.4 cm; Wt 113.6 kg
[~2024-12-01 00:26] MED LIST changes: -ALPH600C PO; +ALPH600C2 PO; -EQL50TAB2 PO; +VITA1TAB82 PO
[2024-12-01 00:34] VITALS: BP 132/62; TEMP 97.2; O2SAT 99
== END 2024-12-01 02:00 | disposition left against medical advice (07) ==
LOC: M ED 00:26
DX: Z53.21 Procedure and treatment not carried out due to patient leaving prior to being seen by health care provider (principal)

== ENCOUNTER → 2024-12-07 | Outpatient (CLI) | payer BC ==
[~2024-12-07] MED LIST changes: -RA T500C2 PO; +TURM500C10 PO
== END ==
LOC: M LAB 19:38
PROVIDERS: ATTEND Emergency Medicine
DX: R19.7 Diarrhea, unspecified (principal)

== ENCOUNTER → 2024-12-08 | Outpatient (CLI) | payer BC | LOC: M PLARAD 10:14 | PROVIDERS: ATTEND Internal Medicine | DX: R51.9 Headache, unspecified (principal); H53.8 Other visual disturbances ==

== ENCOUNTER → 2024-12-14 | Outpatient (REF) | payer BC ==
[2024-12-14 17:29] LABS: APPEARANCE, URINE CLEAR (CLEAR); BACTERIA, URINE AUTO NEGATIVE (NEGATIVE); BILIRUBIN, URINE AUTO NEGATIVE (NEGATIVE); BLOOD, URINE BLOOD NEGATIVE (NEGATIVE); GLUCOSE, URINE (UA) AUTO 3+ mg/dL (NEGATIVE); KETONE, URINE AUTO NEGATIVE (NEGATIVE); LEUKOCYTE ESTERASE, URINE AUTO NEGATIVE (NEGATIVE); MUCUS, URINE SMALL (NEGATIVE); NITRITE, URINE AUTO NEGATIVE (NEGATIVE); PROTEIN, URINE AUTO NEGATIVE (NEGATIVE); RBC, URINE AUTO 1 /HPF (0-3); SPECIFIC GRAVITY URINE AUTO 1.031 (1.002-1.035); SQUAMOUS EPITHELIAL CELL UR AU 0 /HPF (0-6); UROBILINOGEN, URINE AUTO 0.2 mg/dL (0.0-2.0); WBC, URINE AUTO 2 /HPF (0-3)
== END ==
LOC: M SMT 16:48
PROVIDERS: ATTEND Nurse Practitioner Family
DX: N39.46 Mixed incontinence (principal)

== ENCOUNTER → 2024-12-22 | Outpatient (CLI) | payer BC | LOC: M RAD 09:28 | PROVIDERS: ATTEND Physician Assistant | DX: J32.8 Other chronic sinusitis (principal); J34.2 Deviated nasal septum ==

== ENCOUNTER → 2025-02-20 | Outpatient (REF) | payer BC | LOC: M LAB REF 17:45 | PROVIDERS: ATTEND Physician Assistant Medical | DX: R51.9 Headache, unspecified (principal); R53.83 Other fatigue ==

== ENCOUNTER → 2025-03-08 | Outpatient (CLI) | payer BC | LOC: M WUC 12:26 | PROVIDERS: ATTEND Internal Medicine | DX: M51.360 Other intervertebral disc degeneration, lumbar region with discogenic back pain only (principal); M54.2 Cervicalgia; M53.3 Sacrococcygeal disorders, not elsewhere classified ==

== ENCOUNTER → 2025-03-09 | Outpatient (CLI) | payer BC | LOC: M WHC 13:18 | PROVIDERS: ATTEND Physician Assistant | DX: Z12.31 Encounter for screening mammogram for malignant neoplasm of breast (principal); R92.8 Other abnormal and inconclusive findings on diagnostic imaging of breast | CPT/HCPCS: 77063; 77067; 87624; G0123 ==

== ENCOUNTER → 2025-03-09 | Outpatient (REF) | payer BC ==
[2025-03-13 15:59] LABS: HPV APTIMA Not Detected (Not Detected)
== END ==
LOC: M PLALAB 15:07
PROVIDERS: ATTEND Physician Assistant
DX: Z01.419 Encounter for gynecological examination (general) (routine) without abnormal findings (principal); Z12.31 Encounter for screening mammogram for malignant neoplasm of breast; N95.1 Menopausal and female climacteric states; Z13.820 Encounter for screening for osteoporosis; Z79.899 Other long term (current) drug therapy; Z88.6 Allergy status to analgesic agent; Z91.0120 Allergy to eggs, unspecified

== ENCOUNTER → 2025-03-19 | Outpatient (CLI) | payer BC | LOC: M ADAMS 13:10 | DX: R07.89 Other chest pain (principal); Z91.81 History of falling ==

== ENCOUNTER → 2025-04-10 | Outpatient (CLI) | payer BC ==
[~2025-04-10] MED LIST changes: -BACTDSTA PO; +SULF-8 PO
== END ==
LOC: M WHC 14:23
PROVIDERS: ATTEND Physician Assistant
DX: R92.8 Other abnormal and inconclusive findings on diagnostic imaging of breast (principal)
CPT/HCPCS: 77065; G0279

== ENCOUNTER → 2025-04-27 | Outpatient (REF) | payer BC | LOC: EEVIPCON 16:54 → M LAB REF 16:54 | PROVIDERS: ATTEND Podiatrist Foot & Ankle Surgery | DX: L03.116 Cellulitis of left lower limb (principal) ==